=== PATIENT | male | born 1970 | race Caucasian/White ===

== ENCOUNTER 2016-12-13 04:16 | Emergency (ER) | payer MEDICAID ==
[~2016-12-13] VITALS: Ht 193 cm; Wt 95.3 kg
--- NOTE | 2016-12-13 04:16 | Emergency Room Report ---
History of Present Illness General Source: Patient, EMS Present Illness HPI Patient's 46-year-old male brought in by ambulance after increased vomiting. Patient gradual onset of symptoms. Patient reported multiple episodes of nonbilious vomit. Patient had prior history of hypertension. The patient was having some initially dark emesis. Patient prior history of GERD as well as a Manuela-Simeon tear. The patient states he's recovering alcoholic.Patient has had previous EGDs done at [facility] Allergies: Coded Allergies: LISINOPRIL (Verified Allergy, Unknown, 12/13/16) Patient History Reviewed Nursing Documentation: PMH: Agreed, PSxH: Agreed Review of Systems All Other Systems: negative except mentioned in HPI Physical Exam Sp02 EP Interpretation: reviewed, normal General Appearance: normal inspection, alert, GCS 15, mild distress Head: atraumatic ENT: normal ENT inspection, hearing grossly normal, normal voice Neck: normal inspection, full range of motion, supple, no bony tend Respiratory: normal inspection, lungs clear, normal breath sounds, no respiratory distress, no retraction, no wheezing Cardiovascular #1: no edema, tachycardia Gastrointestinal: normal inspection, normal bowel sounds, non tender, soft, no guarding, no hernia Genitourinary: no CVA tenderness Musculoskeletal: normal inspection, back normal, normal range of motion Neurologic: normal inspection, alert, oriented x3, responsive, trade sales assistant III-XII nml as tested, speech normal Psychiatric: normal inspection, judgement/insight normal, mood/affect normal Skin: normal inspection, normal color, no rash Medical Decision Making Diagnostic Impression: Primary Impression: Upper GI bleed Additional Impressions: Acute gastritis High anion gap metabolic acidosis Alcohol withdrawal syndrome ER Course Patient presented for abdominal pain. Differential diagnoses included ischemic bowel, appendicitis, perforated viscus, abdominal aortic aneurysm, inferior myocardial infarction, viral gastroenteritis Because of complexity of patient's case laboratory testing and imaging studies were ordered.The patient was noted to have elevated white blood count. Laboratory testing was also notable for a low bicarbonate with a anion gap acidosis. The patient started on IV fluids as well as IV Zofran and IV acid blockers. Patient was given IV Ativan for alcohol withdrawal. The patient was noted to have some vomiting with dark material.The patient was noted to have anion gap acidosis. Dr. Lind was contacted for O and will be transferred for further management of acidosis. Labs Test 12/13/16 04:27 12/13/16 05:15 White Blood Count 15.2 K/UL (4.8-10.8) Red Blood Count 5.00 M/UL (4.70-6.10) Hemoglobin 13.9 G/DL (14.2-18.0) Hematocrit 43.8 % (42.0-52.0) Mean Corpuscular Volume 88 FL (80-99) Mean Corpuscular Hemoglobin 27.9 PG (27.0-31.0) Mean Corpuscular Hemoglobin Concent 31.8 G/DL (32.0-36.0) Red Cell Distribution Width 18.6 % (11.6-14.8) Platelet Count 321 K/UL (150-450) Mean Platelet Volume 7.2 FL (6.5-10.1) Neutrophils (%) (Auto) 82.7 % (45.0-75.0) Lymphocytes (%) (Auto) 12.9 % (20.0-45.0) Monocytes (%) (Auto) 3.9 % (1.0-10.0) Eosinophils (%) (Auto) 0.0 % (0.0-3.0) Basophils (%) (Auto) 0.4 % (0.0-2.0) Prothrombin Time 10.4 SEC (9.30-11.50) Prothromb Time International Ratio 1.0 (0.9-1.1) Activated Partial Thromboplast Time 24 SEC (23-33) Sodium Level 140 mEQ/L (135-145) Potassium Level 3.7 mEQ/L (3.4-4.9) Chloride Level 90 mEQ/L (98-107) Carbon Dioxide Level 12 mEQ/L (20-30) Anion Gap 38 (5-15) Blood Urea Nitrogen 19 mg/dL (7-23) Creatinine 1.0 mg/dL (0.7-1.2) Estimat Glomerular Filtration Rate > 60 mL/min (>60) Glucose Level 134 mg/dL (74-106) Calcium Level 11.2 mg/dL (8.6-10.2) Total Bilirubin 0.7 mg/dL (0.0-1.2) Aspartate Amino Transf (AST/SGOT) 30 U/L (5-40) Alanine Aminotransferase (ALT/SGPT) 12 U/L (3-41) Alkaline Phosphatase 99 U/L (40-129) Troponin I < 0.30 ng/mL (<=0.30) Total Protein 8.4 g/dL (6.6-8.7) Albumin 4.6 g/dL (3.5-5.2) Globulin 3.8 g/dL Albumin/Globulin Ratio 1.2 (1.0-2.7) Lipase 9 U/L (< 60) EKG Diagnostic Results Rate: tachycardiac Rhythm: NSR ST Segments: no acute changes Rhythm Strip Diag. Results EP Interpretation: yes Rhythm: no PVC's, no ectopy, other - sinus tachycardia, 130 Status: unchanged Disposition: ER SHT-TRM HOSP Condition: Serious Steve Bah Dec 13, 2016 04:16
[2016-12-13] MEDS: Famotidine 20 MG/ 2ML VIAL IVP ONE (04:53)
[2016-12-13 04:55] LABS: BASOPHILS % (AUTO) 0.4 % (0.0-2.0); LYMPHOCYTES % (AUTO) 12.9 % (20.0-45.0); MEAN CORPUSCULAR HEMOGLOBIN 27.9 PG (27.0-31.0); MEAN CORPUSCULAR HGB CONC 31.8 G/DL (32.0-36.0); MEAN CORPUSCULAR VOLUME 88 FL (80-99); MEAN PLATELET VOLUME 7.2 FL (6.5-10.1); MONOCYTES % (AUTO) 3.9 % (1.0-10.0); NEUTROPHILS % (AUTO) 82.7 % (45.0-75.0); PLATELET COUNT 321 K/UL (150-450); RED CELL DISTRIBUTION WIDTH 18.6 % (11.6-14.8); WHITE BLOOD COUNT 15.2 K/UL (4.8-10.8)
[2016-12-13 05:01] VITALS: BP 125/91
[2016-12-13] MEDS ORDERED: METHOCARBAMOL500 MG ORAL (05:04)
[2016-12-13] MEDS ORDERED: PANTOPRAZOLE SO40 MG ORAL (05:04)
[2016-12-13] MEDS ORDERED: ACETAMINOPHEN120 MG RECTAL (05:04)
[2016-12-13] MEDS ORDERED: ALLOPURINOL300 M1 ORAL (05:04)
[2016-12-13] MEDS ORDERED: GABAPENTIN100 MG ORAL (05:04)
[2016-12-13] MEDS ORDERED: PROBENECID-COL1 EACH PO (05:04)
[2016-12-13] MEDS: LORazepam Inj 2mg/ml 1ml IV ONE ×3 (05:11→10:05)
[2016-12-13] MEDS ORDERED: FOLIC ACID1 MG ORAL (05:21)
[2016-12-13] MEDS ORDERED: IRON325 M1 PO (05:21)
[2016-12-13] MEDS ORDERED: ESCITALOPRAM OX20 MG ORAL (05:21)
[2016-12-13] MEDS ORDERED: LEXAPRO10 MG ORAL (05:21)
[2016-12-13 05:34] LABS: ALANINE AMINOTRANSFERASE 12 U/L (3-41); ALBUMIN/GLOBULIN RATIO 1.2 (1.0-2.7); ANION GAP 38 (5-15); ASPARTATE AMINO TRANSFERASE 30 U/L (5-40); CALCIUM 11.2 mg/dL (8.6-10.2); CARBON DIOXIDE 12 mEQ/L (20-30); CHLORIDE 90 mEQ/L (98-107); GLOMERULAR FILTRATION RATE > 60 mL/min (>60); HEMOLYSIS 55; LIPASE 9 U/L (< 60); POTASSIUM 3.7 mEQ/L (3.4-4.9); SODIUM 140 mEQ/L (135-145); TOTAL PROTEIN 8.4 g/dL (6.6-8.7)
[2016-12-13 05:36] LABS: PROTHROMBIN TIME 10.4 SEC (9.30-11.50); TROPONIN I < 0.30 ng/mL (<=0.30)
[2016-12-13 06:04] VITALS: BP 142/98
[2016-12-13 06:38] LABS: APPEARANCE,URINE CLEAR; KETONES,URINE 3+ (NEGATIVE); LEUKOCYTE ESTERASE ,URINE NEGATIVE (NEGATIVE); NITRITE,URINE NEGATIVE (NEGATIVE); PH,URINE 6 (4.5-8.0); PROTEIN,URINE 3+ (NEGATIVE); UROBILINOGEN,URINE NORMAL MG/DL (0.0-1.0)
[2016-12-13 06:55] LABS: BACTERIA,URINE FEW /HPF; SQUAMOUS EPITHELIAL CELL,UR OCCASIONAL /LPF (NONE/OCC); WBC,URINE 0-2 /HPF (0 - 0)
[2016-12-13 08:00] VITALS: BP 162/101
[2016-12-13] MEDS ORDERED: ATENOLOL25 MG ORAL (08:45)
[2016-12-13] MEDS: Pantoprazole Inj IVP ONE (09:06)
[2016-12-13] MEDS: Atenolol 25mg tab ORAL ONE (09:07)
[2016-12-13 10:00] VITALS: BP 162/107
[2016-12-13 10:11] VITALS: BP 162/107
--- NOTE | 2016-12-13 11:41 | Diagnostic Imaging Report ---
Indication: Chest Pain Comparison: None A single view chest radiograph was obtained. Findings: Cardiomediastinal appearance is within normal limits for age. Lung volumes are low. Pulmonary vascularity is appropriate. The diaphragmatic contour is smooth and costophrenic angles are sharp. No pleural effusions are identified. The bones are unremarkable. Impression: No acute findings
--- NOTE | 2016-12-15 19:05 | Cardiology Report ---
APPROVED REPORT EKG Measurement Heart [id number] Sinus tachycardia Left anterior fascicular block Abnormal ECG
== END 2016-12-13 10:19 | disposition short-term general hospital (02) ==
LOC: EDBD 04:16 → EMR 04:29
DX: K92.2 Gastrointestinal hemorrhage, unspecified (principal); K29.00 Acute gastritis without bleeding; E87.2 Acidosis; F10.239 Alcohol dependence with withdrawal, unspecified
CPT/HCPCS: 36415; 71010; 80053; 81003; 83690; 84484; 85025; 85610; 85730; 86850; 86900; 86901; 93005; 96374; 96375; J2405

== ENCOUNTER 2016-12-21 17:20 | Emergency (ER) | payer MEDICAID ==
[~2016-12-21] VITALS: Ht 195.6 cm; Wt 95.3 kg
[~2016-12-21 17:20] MED LIST: ACETAMINOPHEN120 MG RECTAL; ALLOPURINOL300 M1 ORAL; ATENOLOL25 MG ORAL; ESCITALOPRAM OX20 MG ORAL; FOLIC ACID1 MG ORAL; GABAPENTIN100 MG ORAL; IRON325 M1 PO; LEXAPRO10 MG ORAL; METHOCARBAMOL500 MG ORAL; PANTOPRAZOLE SO40 MG ORAL; PROBENECID-COL1 EACH PO
--- NOTE | 2016-12-21 17:43 | Emergency Room Report ---
History of Present Illness General Chief Complaint: Vomiting Present Illness HPI 46-year-old male presents emergency department complaining of nausea and vomiting due to alcohol withdrawal since this a.m. Patient states that he is an alcoholic and he is attempting to detox on his own he estimates drinking slightly less than 1 pint this a.m. he also reports history of Yasmin-Simeon tear approximately 3 weeks ago. he reports over 6 episodes of vomiting this a.m. denies blood in the vomit. Patient reports multiple episodes of gagging without vomiting coming out as well. he denies throat pain or chest pain at this time. he states she has a history of high blood pressure and did not take his blood pressure medication this a.m. because of all the vomiting. Patient denies history of alcoholic seizures during withdrawal. Patient reports aches and pains generalized upper body, sweating, and dizziness. he denies concomitant drug use. Denies CP, Palpitations, LOC, AMS, dizziness, Changes in Vision, Sensation, paresthesias, or a sudden severe headache. Allergies: Coded Allergies: LISINOPRIL (Verified Allergy, Unknown, 12/13/16) Patient History Past Medical History: see triage record Past Surgical History: none Pertinent Family History: none Social History: Reports: alcohol use Reviewed Nursing Documentation: PMH: Agreed, PSxH: Agreed Nursing Documentation-PMH Hx Hypertension: Yes Hx Gastrointestinal Problems: Yes - GERD Review of Systems All Other Systems: negative except mentioned in HPI Physical Exam Vital Signs Date Time Temp Pulse Resp B/P Pulse Ox O2 Delivery O2 Flow Rate FiO2 12/21/16 17:35 98.1 99 21 140/94 98 Room Air Sp02 EP Interpretation: reviewed, normal General Appearance: alert, GCS 15, non-toxic, mild distress Head: normocephalic, atraumatic Eyes: bilateral eye PERRL, bilateral eye normal inspection ENT: hearing grossly normal, normal pharynx, no angioedema, normal voice Neck: full range of motion, supple/symm/no masses Respiratory: chest non-tender, lungs clear, normal breath sounds, speaking full sentences Cardiovascular #1: regular rate, rhythm, no edema Gastrointestinal: normal bowel sounds - hyperactive abdominal sounds in all 4 quadrants, non tender, soft, no guarding, no rebound Rectal: deferred Musculoskeletal: back normal, gait/station normal, normal range of motion, non- tender Neurologic: alert, oriented x3, responsive, motor strength/tone normal, sensory intact, speech normal Psychiatric: judgement/insight normal, memory normal, mood/affect normal, no suicidal/homicidal ideation, anxious Skin: normal color, no rash, warm/dry Lymphatic: no adenopathy Medical Decision Making PA Attestation Dr. Bah is my supervising Physician whom patient management has been discussed with. Diagnostic Impression: Primary Impression: Alcohol withdrawal Qualified Codes: F10.230 - Alcohol dependence with withdrawal, uncomplicated Additional Impression: Gastritis due to alcohol without hemorrhage Qualified Codes: K29.20 - Alcoholic gastritis without bleeding ER Course 46-year-old male presents emergency department complaining of nausea and vomiting due to alcohol withdrawal since this a.m. Patient states that he is an alcoholic and he is attempting to detox on his own he estimates drinking slightly less than 1 pint this a.m. he also reports history of Yasmin-Simeon tear approximately 3 weeks ago. he reports over 6 episodes of vomiting this a.m. denies blood in the vomit. Patient reports multiple episodes of gagging without vomiting coming out as well. he denies throat pain or chest pain at this time. he states she has a history of high blood pressure and did not take his blood pressure medication this a.m. because of all the vomiting. Patient denies history of alcoholic seizures during withdrawal. Patient reports aches and pains generalized upper body, sweating, and dizziness. he denies concomitant drug use. Pt. is currently intoxicated with alcohol, pt. is in Mild distress with nausea and intermittent vomiting, pt. is alert, no obvious signs of trauma, able to ambulate on his own. -pt has Hx of HTN and states he did not take his medication this morning. -hx of yasmin-simeon tear, denies blood in the vomit. Ddx considered but are not limited to ETOH, Trauma, Syncope, dementia, OD, withdraw Vital signs: , pt. is afebrile, BP is elevated. H&PE are most consistent with ETOH abuse, and hx of withdraw. ORDERS: -CBC: WNL/unrmarkable no evidence of acute blood loss. -CMP: unremarkable -PT/PTT: WNL -- Review of this pt's medical records shows he is blood type A positive. ED INTERVENTIONS: -4mg IV zofran - 20 mg Pepcid IV - 10mg Reglan IV -1mg IV Ativan -1000cc NS Bolus -100mg Thiamine PO Observance while he detoxifies, and management of his symptoms pharmacologically. Pt. was allowed to sleep/rest. - pt is able to tolerate oral fluids, VS are stable - Pt is provided with drug and alcohol abuse information/resources. DISCHARGE: At this time pt. is stable for d/c to home. Will provide printed patient care instructions, and any necessary prescriptions. Care plan and follow up instructions have been discussed with the patient prior to discharge. Labs Test 12/21/16 18:20 White Blood Count 7.4 K/UL (4.8-10.8) Red Blood Count 4.80 M/UL (4.70-6.10) Hemoglobin 13.4 G/DL (14.2-18.0) Hematocrit 43.9 % (42.0-52.0) Mean Corpuscular Volume 92 FL (80-99) Mean Corpuscular Hemoglobin 28.0 PG (27.0-31.0) Mean Corpuscular Hemoglobin Concent 30.6 G/DL (32.0-36.0) Red Cell Distribution Width 18.1 % (11.6-14.8) Platelet Count 260 K/UL (150-450) Mean Platelet Volume 6.1 FL (6.5-10.1) Neutrophils (%) (Auto) 68.1 % (45.0-75.0) Lymphocytes (%) (Auto) 24.9 % (20.0-45.0) Monocytes (%) (Auto) 5.6 % (1.0-10.0) Eosinophils (%) (Auto) 0.3 % (0.0-3.0) Basophils (%) (Auto) 1.1 % (0.0-2.0) Prothrombin Time 10.3 SEC (9.30-11.50) Prothromb Time International Ratio 1.0 (0.9-1.1) Activated Partial Thromboplast Time 24 SEC (23-33) Sodium Level 148 mEQ/L (135-145) Potassium Level 4.1 mEQ/L (3.4-4.9) Chloride Level 98 mEQ/L (98-107) Carbon Dioxide Level 17 mEQ/L (20-30) Anion Gap 33 (5-15) Blood Urea Nitrogen 13 mg/dL (7-23) Creatinine 0.9 mg/dL (0.7-1.2) Estimat Glomerular Filtration Rate > 60 mL/min (>60) Glucose Level 102 mg/dL (74-106) Calcium Level 9.4 mg/dL (8.6-10.2) Total Bilirubin 0.4 mg/dL (0.0-1.2) Aspartate Amino Transf (AST/SGOT) 28 U/L (5-40) Alanine Aminotransferase (ALT/SGPT) 13 U/L (3-41) Alkaline Phosphatase 103 U/L (40-129) Total Protein 8.4 g/dL (6.6-8.7) Albumin 4.4 g/dL (3.5-5.2) Globulin 4.0 g/dL Albumin/Globulin Ratio 1.1 (1.0-2.7) Last Vital Signs Date Time Temp Pulse Resp B/P Pulse Ox O2 Delivery O2 Flow Rate FiO2 12/21/16 17:35 98.1 99 21 140/94 98 Room Air Disposition: HOME, SELF-CARE Condition: Stable Scripts Ranitidine Hcl* (ZANTAC*) 150 Mg Tablet 150 MG ORAL TWICE A DAY for 30 Days, #60 TAB Prov: Luz Marina Herrera 12/21/16 Ondansetron Odt* (ZOFRAN ODT*) 4 Mg Tab.rapdis 4 MG ORAL Q6H Y for Nausea & Vomiting, #20 TAB Prov: Luz Marina Herrera 12/21/16 Patient Instructions: Alcohol Withdrawal, [id number] Additional Instructions: Take medications as directed. Follow up with PCP in 48 hours days Return sooner to ED if new symptoms occur, or current symptoms become worse. - Please note that this Emergency Department Report was dictated using [id number] drop operator technology software, occasionally this can lead to erroneous entry secondary to interpretation by the dictation equipment. Luz Marina Herrera Dec 21, 2016 17:43
[2016-12-21] MEDS ORDERED: Famotidine 20 MG/ 2ML VIAL IVP ONE (18:00)
[2016-12-21 18:38] LABS: BASOPHILS % (AUTO) 1.1 % (0.0-2.0); EOSINOPHILS % (AUTO) 0.3 % (0.0-3.0); LYMPHOCYTES % (AUTO) 24.9 % (20.0-45.0); MEAN CORPUSCULAR HGB CONC 30.6 G/DL (32.0-36.0); MEAN CORPUSCULAR VOLUME 92 FL (80-99); MEAN PLATELET VOLUME 6.1 FL (6.5-10.1); MONOCYTES % (AUTO) 5.6 % (1.0-10.0); NEUTROPHILS % (AUTO) 68.1 % (45.0-75.0); PLATELET COUNT 260 K/UL (150-450); RED CELL DISTRIBUTION WIDTH 18.1 % (11.6-14.8); WHITE BLOOD COUNT 7.4 K/UL (4.8-10.8)
[2016-12-21] MEDS ORDERED: LORazepam Inj 2mg/ml 1ml IM ONE (18:45)
[2016-12-21 18:46] LABS: PROTHROMBIN TIME 10.3 SEC (9.30-11.50)
[2016-12-21 18:56] LABS: ALANINE AMINOTRANSFERASE 13 U/L (3-41); ALBUMIN/GLOBULIN RATIO 1.1 (1.0-2.7); ANION GAP 33 (5-15); ASPARTATE AMINO TRANSFERASE 28 U/L (5-40); CALCIUM 9.4 mg/dL (8.6-10.2); CARBON DIOXIDE 17 mEQ/L (20-30); CHLORIDE 98 mEQ/L (98-107); CREATININE 0.9 mg/dL (0.7-1.2); GLOMERULAR FILTRATION RATE > 60 mL/min (>60); HEMOLYSIS 0; POTASSIUM 4.1 mEQ/L (3.4-4.9); SODIUM 148 mEQ/L (135-145); TOTAL PROTEIN 8.4 g/dL (6.6-8.7)
[2016-12-21] MEDS ORDERED: Metoclopramide 10mg/2ml Inj IVP ONE (19:00)
[2016-12-21] MEDS ORDERED: LORazepam Inj 2mg/ml 1ml IV ONE (19:00)
[2016-12-21] MEDS ORDERED: Thiamine 100mg tab ORAL ONE (19:30)
[2016-12-21] MEDS ORDERED: ZOFRAN ODT4 MG ORAL (20:26)
[2016-12-21] MEDS ORDERED: ZANTAC150 MG ORAL (20:26)
[2016-12-21 20:46] VITALS: BP 177/87
[2016-12-21 20:47] VITALS: BP 177/87
== END 2016-12-21 20:50 | disposition home or self-care (01) ==
LOC: EMR 18:05
DX: F10.239 Alcohol dependence with withdrawal, unspecified (principal); K29.20 Alcoholic gastritis without bleeding; I10 Essential (primary) hypertension; K21.9 Gastro-esophageal reflux disease without esophagitis; Z88.8 Allergy status to other drugs, medicaments and biological substances
CPT/HCPCS: 36415; 80053; 85025; 85610; 85730; 96360; 96374; 96375; 99284; J2405; J2765; S0028

== ENCOUNTER 2016-12-23 09:05 | Inpatient (IN) | payer MEDICAID ==
[2016-12-23] VITALS (8 sets, daily range): BP systolic 96–140; BP diastolic 70–104
[~2016-12-23] VITALS: Ht 190.5 cm; Wt 86.2 kg
[~2016-12-23 09:05] MED LIST changes: +ZANTAC150 MG ORAL; +ZOFRAN ODT4 MG ORAL
[2016-12-23] MEDS ORDERED: Pantoprazole Inj IVP ONE (09:15)
[2016-12-23] MEDS ORDERED: Pantoprazole 80 MG in NS 250 ML IV ONE (09:15)
[2016-12-23] MEDS ORDERED: Famotidine 20 MG/ 2ML VIAL IVP ONE (09:15)
[2016-12-23] MEDS ORDERED: cefTRIAXone 1 GM in NS 55 ML IVPB ONE (09:15)
[2016-12-23] MEDS ORDERED: SandoSTATIN 50mcg Inj IVP ONE (09:15)
[2016-12-23] MEDS: Octreotide Acetate 500 MCG in Sodium Chloride 499 ML IV SCH ×2 (09:44→19:15)
[2016-12-23] MEDS ORDERED: LORazepam Inj 2mg/ml 1ml IV ONE (09:45)
--- NOTE | 2016-12-23 09:55 | Emergency Room Report ---
History of Present Illness General Chief Complaint: Vomiting Source: Patient, EMS Present Illness HPI 46YOM BIBEMS for hematemesis and "alcohol withdrawal." Patient states he has been trying to quit drinking for "4 hours." Drank vodka this morning. Unable to take oral nexium given by doctor for he says is "gastritis" from ETOH. C/o mild epigastric pain. Denies blood in stool, melena, urinary complaints, chest pain, SOB. Allergies: Coded Allergies: LISINOPRIL (Verified Allergy, Unknown, 12/13/16) Patient History Past Medical History: other - ETOH gastritis Past Surgical History: none Pertinent Family History: none Social History: Reports: alcohol use Nursing Documentation-PM Past Medical History: No History, Except For Hx Hypertension: Yes Hx Gastrointestinal Problems: Yes - GERD History Of Psychiatric Problem: Yes - depression, alcohol abuse Review of Systems All Other Systems: negative except mentioned in HPI Physical Exam Vital Signs Date Time Temp Pulse Resp B/P Pulse Ox O2 Delivery O2 Flow Rate FiO2 12/23/16 08:55 98.8 143 24 99/57 100 Room Air Sp02 EP Interpretation: reviewed, abnormal General Appearance: normal inspection, no apparent distress, alert, GCS 15, non -toxic, moderate distress, other - +AOB Head: normocephalic, atraumatic Eyes: bilateral eye EOMI, bilateral eye PERRL ENT: normal ENT inspection, hearing grossly normal, normal voice Neck: normal inspection, full range of motion, supple, no bony tend Respiratory: normal inspection, lungs clear, normal breath sounds, no respiratory distress, no retraction, no wheezing Cardiovascular #1: regular rate, rhythm, no edema, tachycardia Gastrointestinal: normal inspection, normal bowel sounds, soft, non-distended, no guarding, no hernia, other - + epigastric ttp Genitourinary: no CVA tenderness Musculoskeletal: normal inspection, back normal, normal range of motion, May' s Sign negative Neurologic: normal inspection, alert, oriented x3, responsive, glaze grinder III-XII nml as tested, motor strength/tone normal, speech normal, other - no tremors or fasciculations Psychiatric: normal inspection, judgement/insight normal, mood/affect normal Procedures Critical Care Time Critical Care Time CC time 45 minutes Care for a 46 YOM with ?known gastritis/ulcer from ETOH with alleged hematemesis VS notable for tachycardia. Normotensive. Afebrile. DDx includes Perforation, gastric ulcer, PUD, ETOH gastritis Patient is oriented, no active vomiting/coughing blood. Comprehensive physical exam completed, atraumatic. Labs include CBC and chem panel, EKG 12 lead and constant cardiac rhythm strip monitoring, IV established wide bore, Coags, T&S, IV protononix, octreotide Airway adequately maintained by patient upon arrival. EKG reveals NSR without QRS abnormalities, sinus tach Physician spent 45 minutes of direct critical care time monitoring patient's respiratory, cardiac and neurological status, reassessment, review of imaging, labs and discussion with attending hospitalist, possible GI consult Does not include procedures Medical Decision Making Diagnostic Impression: Primary Impression: Hematemesis Qualified Codes: K92.0 - Hematemesis; R11.0 - Nausea Additional Impression: Alcohol abuse ER Course Labs: No leuks. H&H stable. No other major metabolic abnormalities. No additional vomiting or hematemesis here Initial tachycardia 140 improved to 116 after IVF hydration, IV ativan for ETOH withdrawal Received IV protonix, ocrtreotide and ceftriaxone for presumed cirrhosis Patient still unstable for transfer given tachycardia - history of yasmin hyde tear so concern for massive hematemesis to occur en route for transfer to [facility] Endorsed to Dr Matos for tele admit at 1123am EKG Diagnostic Results Rate: tachycardiac Rhythm: NSR ST Segments: no acute changes Rhythm Strip Diag. Results EP Interpretation: yes Rate: 115 Rhythm: NSR, no PVC's, no ectopy Chest X-Ray Diagnostic Results EP Interpretation: Yes Findings: no consolidation, no effusion, no pneumothorax, no acute cardiopulmonary disease Number of Views: 1 Last Vital Signs Date Time Temp Pulse Resp B/P Pulse Ox O2 Delivery O2 Flow Rate FiO2 12/23/16 08:55 98.8 143 24 99/57 100 Room Air Status: improved Disposition: ADMITTED INPATIENT Condition: Critical Referrals: [facility],REFERRING (PCP) DUNIA AGUDELO M.D. Dec 23, 2016 09:55
[2016-12-23 10:24] LABS: BASOPHILS % (AUTO) 0.7 % (0.0-2.0); LYMPHOCYTES % (AUTO) 25.7 % (20.0-45.0); MEAN CORPUSCULAR HEMOGLOBIN 27.4 PG (27.0-31.0); MEAN CORPUSCULAR HGB CONC 30.4 G/DL (32.0-36.0); MEAN CORPUSCULAR VOLUME 90 FL (80-99); MEAN PLATELET VOLUME 6.2 FL (6.5-10.1); NEUTROPHILS % (AUTO) 69.7 % (45.0-75.0); PLATELET COUNT 272 K/UL (150-450); RED BLOOD COUNT 4.85 M/UL (4.70-6.10); RED CELL DISTRIBUTION WIDTH 17.8 % (11.6-14.8); WHITE BLOOD COUNT 8.9 K/UL (4.8-10.8)
[2016-12-23 10:31] LABS: INR 1.1 (0.9-1.1); PROTHROMBIN TIME 11.2 SEC (9.30-11.50)
[2016-12-23 10:33] LABS: ALANINE AMINOTRANSFERASE 14 U/L (3-41); ALBUMIN/GLOBULIN RATIO 1.1 (1.0-2.7); ANION GAP 33 (5-15); ASPARTATE AMINO TRANSFERASE 42 U/L (5-40); CALCIUM 8.4 mg/dL (8.6-10.2); CARBON DIOXIDE 21 mEQ/L (20-30); CHLORIDE 88 mEQ/L (98-107); GLOMERULAR FILTRATION RATE > 60 mL/min (>60); HEMOLYSIS 115; LIPASE 17 U/L (< 60); SODIUM 142 mEQ/L (135-145); TOTAL PROTEIN 7.6 g/dL (6.6-8.7); TROPONIN I < 0.30 ng/mL (<=0.30)
[2016-12-23 10:36] LABS: POTASSIUM 4.4 mEQ/L (3.4-4.9)
[2016-12-23 11:16] LABS: APPEARANCE,URINE CLEAR; KETONES,URINE 2+ (NEGATIVE); LEUKOCYTE ESTERASE ,URINE NEGATIVE (NEGATIVE); NITRITE,URINE NEGATIVE (NEGATIVE); PH,URINE 6 (4.5-8.0); PROTEIN,URINE 2+ (NEGATIVE); UROBILINOGEN,URINE NORMAL MG/DL (0.0-1.0)
--- NOTE | 2016-12-23 11:16 | Diagnostic Imaging Report ---
Clinical history: Chest pain Technique: Portable AP chest radiograph was obtained. Comparison: 12/13/16. Findings: There is no significant interval change in the interval, allowing for differences in technique and positioning. Impression: Low lung volumes. Borderline cardiomegaly with probable mild interstitial edema or vascular crowding. Bilateral thoracolumbar Simons rods and left clavicular orthopedic hardware.
[2016-12-23 11:33] LABS: BACTERIA,URINE OCCASIONAL /HPF; HYALINE CASTS, URINE 0-2 /LPF; MUCUS,URINE FEW /LPF (NONE/OCC); RBC,URINE 0-2 /HPF (0 - 0); SQUAMOUS EPITHELIAL CELL,UR OCCASIONAL /LPF (NONE/OCC); WBC,URINE 0 /HPF (0 - 0)
[2016-12-23] MEDS ORDERED: Metoclopramide 10mg/2ml Inj IVP ONE (12:45)
[2016-12-23] MEDS ORDERED: Diazepam 10mg/2ml Inj IV ONE (12:45)
[2016-12-23] MEDS ORDERED: LR 1000ml 1,000 ML IV STA (12:54)
[2016-12-23] MEDS ORDERED: Morphine Sulfate 4mg/ml Inj IVP ONE (13:00)
[2016-12-23] MEDS ORDERED: LORazepam Inj 2mg/ml 1ml IV PRN (14:00)
[2016-12-23] MEDS ORDERED: Morphine Sulfate 2mg/ml Inj IVP PRN (14:00)
[2016-12-23] MEDS ORDERED: Mylanta II UD 30ml ORAL PRN (14:00)
[2016-12-23] MEDS ORDERED: Miralax 17gm pkt ORAL PRN (14:00)
--- NOTE | 2016-12-23 15:06 | History and Physical ---
History of Present Illness General Date patient seen: Dec 23, 2016 Time patient seen: 14:45 Reason for Hospitalization: Vomiting Present Illness HPI 46 y/old male presented for hematemesis and "alcohol withdrawal." Patient stated he has been trying to quit drinking for "4 hours." Drank vodka this morning. Coffee ground emesis in ED, denied blood in stool C/o mild epigastric pain. denies urinary complaints, chest pain, SOB. laboratory workup unremarkable, HH stable, no leucocytosis troponin negative ECG with ST, no ischemic changes patient reported previous episode of hematemesis anxious, patient being admitted to [facility] for further management Allergies: Coded Allergies: LISINOPRIL (Verified Allergy, Unknown, 12/13/16) Medication History Scheduled Allopurinol* (Allopurinol*), 300 MG ORAL DAILY, (Reported) Atenolol* (Tenormin*), Unknown Dose ORAL DAILY, (Reported) Escitalopram Oxalate (Escitalopram Oxalate*), 20 MG ORAL DAILY, (Reported) Escitalopram Oxalate* (Lexapro*), 10 MG ORAL DAILY, (Reported) Folic Acid* (Folic Acid*), 1 MG ORAL DAILY, (Reported) Gabapentin* (Gabapentin*), 100 MG ORAL THREE TIMES A DAY, (Reported) Pantoprazole* (Pantoprazole*), 40 MG ORAL DAILY, (Reported) Ranitidine Hcl* (Zantac*), 150 MG ORAL TWICE A DAY Scheduled PRN Acetaminophen* (Tylenol*), 120 MG RECTAL Q4H PRN for Mild Pain/Temp > 100.5, ( Reported) Methocarbamol* (Methocarbamol*), 500 MG ORAL QID PRN for For Pain, (Reported) Ondansetron Odt* (Zofran Odt*), 4 MG ORAL Q6H PRN for Nausea & Vomiting Miscellaneous Medications Colchicine/Probenecid (Probenecid-Colchicine Tabs), 1 EACH PO, (Reported) Ferrous Sulfate (Iron), 325 MG PO, (Reported) Patient History Healthcare decision maker Resuscitation status Advanced Directive on File Past Medical/Surgical History Past Medical/Surgical History: (1) ETOH abuse (2) Gout (3) HTN (hypertension) Review of Systems Constitutional: Reports: weakness ENT: Reports: no symptoms Respiratory: Reports: no symptoms Cardiovascular: Reports: other - HTN Gastrointestinal: Reports: see HPI Musculoskeletal: Reports: joint pain, other - gout , hx of spinal fusion Skin: Reports: no symptoms Psychiatric: Reports: no symptoms Neurological: Reports: no symptoms Endocrine: Reports: no symptoms Hematologic/Lymphatic: Reports: no symptoms Physical Exam General Appearance: WD/WN, alert - responsive Lines, tubes and drains: peripheral HEENT: normocephalic, atraumatic, anicteric Neck: non-tender, normal alignment Respiratory/Chest: chest wall non-tender, lungs clear, no respiratory distress , no accessory muscle use Cardiovascular/Chest: regular rhythm, tachycardia Abdomen: normal bowel sounds, soft - mild distention, TTP epigastric area Extremities: normal range of motion, no calf tenderness, other - +2 edema BLE Skin Exam: normal pigmentation, warm/dry, other - BLE ruddish color Neurologic: alert, responsive Musculoskeletal: normal muscle bulk Last 24 Hour Vital Signs Date Time Temp Pulse Resp B/P Pulse Ox O2 Delivery O2 Flow Rate FiO2 12/23/16 13:48 98.8 12/23/16 13:47 117 20 112/79 95 Nasal Cannula 2.0 12/23/16 12:03 98.8 122 20 96/70 97 Nasal Cannula 2.0 12/23/16 11:03 98.8 126 22 133/93 98 Nasal Cannula 2.0 12/23/16 08:55 98.8 143 24 99/57 100 Room Air Laboratory Tests Test 12/23/16 09:53 12/23/16 11:00 White Blood Count 8.9 K/UL (4.8-10.8) Red Blood Count 4.85 M/UL (4.70-6.10) Hemoglobin 13.3 G/DL (14.2-18.0) L Hematocrit 43.6 % (42.0-52.0) Mean Corpuscular Volume 90 FL (80-99) Mean Corpuscular Hemoglobin 27.4 PG (27.0-31.0) Mean Corpuscular Hemoglobin Concent 30.4 G/DL (32.0-36.0) L Red Cell Distribution Width 17.8 % (11.6-14.8) H Platelet Count 272 K/UL (150-450) Mean Platelet Volume 6.2 FL (6.5-10.1) L Neutrophils (%) (Auto) 69.7 % (45.0-75.0) Lymphocytes (%) (Auto) 25.7 % (20.0-45.0) Monocytes (%) (Auto) 4.0 % (1.0-10.0) Eosinophils (%) (Auto) 0.0 % (0.0-3.0) Basophils (%) (Auto) 0.7 % (0.0-2.0) Prothrombin Time 11.2 SEC (9.30-11.50) Prothromb Time International Ratio 1.1 (0.9-1.1) Activated Partial Thromboplast Time 25 SEC (23-33) Sodium Level 142 mEQ/L (135-145) Potassium Level 4.4 mEQ/L (3.4-4.9) Chloride Level 88 mEQ/L (98-107) L Carbon Dioxide Level 21 mEQ/L (20-30) Anion Gap 33 (5-15) H Blood Urea Nitrogen 23 mg/dL (7-23) Creatinine 1.0 mg/dL (0.7-1.2) Estimat Glomerular Filtration Rate > 60 mL/min (>60) Glucose Level 175 mg/dL (74-106) H Calcium Level 8.4 mg/dL (8.6-10.2) L Total Bilirubin 0.3 mg/dL (0.0-1.2) Aspartate Amino Transf (AST/SGOT) 42 U/L (5-40) H Alanine Aminotransferase (ALT/SGPT) 14 U/L (3-41) Alkaline Phosphatase 86 U/L (40-129) Troponin I < 0.30 ng/mL (<=0.30) Total Protein 7.6 g/dL (6.6-8.7) Albumin 4.1 g/dL (3.5-5.2) Globulin 3.5 g/dL Albumin/Globulin Ratio 1.1 (1.0-2.7) Lipase 17 U/L (< 60) Urine Color Pale yellow Urine Appearance Clear Urine pH 6 (4.5-8.0) Urine Specific [place] 1.015 (1.005-1.035) Urine Protein 2+ (NEGATIVE) H Urine Glucose (UA) Negative (NEGATIVE) Urine Ketones 2+ (NEGATIVE) H Urine Occult Blood 1+ (NEGATIVE) H Urine Nitrite Negative (NEGATIVE) Urine Bilirubin Negative (NEGATIVE) Urine Urobilinogen Normal MG/DL (0.0-1.0) Urine Leukocyte Esterase Negative (NEGATIVE) Urine RBC 0-2 /HPF (0 - 0) H Urine WBC 0 /HPF (0 - 0) Urine Squamous Epithelial Cells Occasional /LPF Urine Bacteria Occasional /HPF (NONE) Urine Hyaline Casts 0-2 /LPF (NONE) H Urine Mucus Few /LPF (NONE/OCC) H Height (Feet): 6 Height (Inches): 3.00 Weight (Pounds): 190 Medications Current Medications Medications (Trade) Dose Ordered Sig/Kulwant Route PRN Reason Start Time Stop Time Status Last Admin Dose Admin Acetaminophen (Tylenol) 650 mg Q4H PRN ORAL fever 12/23/16 14:00 01/22/17 13:59 Al Hydroxide/Mg Hydroxide (Mylanta II) 30 ml Q6H PRN ORAL dyspepsia 12/23/16 14:00 01/22/17 13:59 Chlordiazepoxide (Librium) 25 mg Q6H PRN ORAL Agitation 12/23/16 14:00 12/30/16 13:59 Dextrose STAT PRN IV Hypoglycemia 12/23/16 14:00 01/22/17 13:59 Folic Acid/ Magnesium Sulfate/ Multivitamins/ Sodium Chloride (Folvite/ Magnesium Sulfate/ M.v.i.-12/NS w/ KCl 20mEq) 1,014.2 ml @ 125 mls/ hr Q24H IV 12/23/16 16:00 01/22/17 15:59 Lorazepam (Ativan 2mg/ml 1ml) 2 mg Q1H PRN IV seizures 12/23/16 14:00 12/30/16 13:59 Morphine Sulfate (Morphine Sulfate) 1 mg Q4H PRN IVP PAIN 4-10 12/23/16 14:00 12/30/16 13:59 Octreotide Acetate/Sodium Chloride (SandoSTATIN/NS) 500 ml @ 50 mls/hr Q10H IV 12/23/16 09:15 01/22/17 09:14 12/23/16 09:44 Ondansetron HCl (Zofran) 4 mg Q6H PRN IVP Nausea & Vomiting 12/23/16 14:00 01/22/17 13:59 Pantoprazole 80 mg/Sodium Chloride 250 ml @ 25 mls/hr Q10H ONCE IV 12/23/16 09:15 4/2/17 19:14 12/23/16 09:55 Polyethylene Glycol (Miralax) 17 gm HSPRN PRN ORAL Constipation 12/23/16 14:00 01/22/17 13:59 Zolpidem Tartrate (Ambien) 5 mg HSPRN PRN ORAL Insomnia 12/23/16 14:00 01/22/17 13:59 Assessment/Plan Assessment/Plan ASSESSMENT hematemesis alcohol intoxication alcoholic liver disease HTN gout PLAN OF CARE tele NPO IVF /banana bag Librium for withdrawal Ativan prn for possible seizures GI consult , started on Octreotide gtt s/p initial PPI gtt and Octreotide in ED HH stable , monitor, stable for now PPI a/emetic prn abdominal US case discussed and evaluated by supervising physician Loreto Carney NP ([place]) Dec 23, 2016 15:06
[2016-12-23] MEDS ORDERED: THIAMINE HCL IVPB SCH (16:00)
[2016-12-23] MEDS ORDERED: D5W IVPB SCH (16:00)
[2016-12-23] MEDS ORDERED: Thiamine 100 MG ivpb IVPB SCH ×2 (16:00)
[2016-12-23] MEDS: Folic Acid 1 MG, Magnesium Sulfate 2,000 MG, Multivitamin - 12 Injection 10 ML in NS w/... IV SCH (16:46)
[2016-12-23] MEDS: Thiamine HCl 100 MG in D5W 110 ML IV SCH (16:47)
[2016-12-23] MEDS: Metoclopramide 10mg/2ml Inj IVP PRN (19:50)
[2016-12-23] MEDS ORDERED: Octreotide Acetate 500 MCG in Sodium Chloride 499 ML IV SCH ×4 (23:45)
[2016-12-24] VITALS (12 sets, daily range): BP systolic 141–157; BP diastolic 89–107
[2016-12-24] MEDS: Zolpidem 5mg tab ORAL PRN ×2 (00:37→23:54)
[2016-12-24] MEDS: Pantoprazole Inj IVP SCH (08:40)
[2016-12-24] MEDS: Metoclopramide 10mg/2ml Inj IVP PRN ×2 (10:16→17:15)
[2016-12-24] MEDS: chlordiazePOXIDE 25mg Cap ORAL PRN (10:21)
[2016-12-24 10:55] LABS: BASOPHILS % (AUTO) 0.4 % (0.0-2.0); EOSINOPHILS % (AUTO) 0.2 % (0.0-3.0); LYMPHOCYTES % (AUTO) 18.6 % (20.0-45.0); MEAN CORPUSCULAR HEMOGLOBIN 27.4 PG (27.0-31.0); MEAN CORPUSCULAR HGB CONC 30.6 G/DL (32.0-36.0); MEAN CORPUSCULAR VOLUME 89 FL (80-99); MEAN PLATELET VOLUME 6.9 FL (6.5-10.1); MONOCYTES % (AUTO) 7.4 % (1.0-10.0); NEUTROPHILS % (AUTO) 73.5 % (45.0-75.0); PLATELET COUNT 121 K/UL (150-450); RED BLOOD COUNT 3.49 M/UL (4.70-6.10); RED CELL DISTRIBUTION WIDTH 17.7 % (11.6-14.8); WHITE BLOOD COUNT 7.2 K/UL (4.8-10.8)
[2016-12-24 11:17] LABS: ALANINE AMINOTRANSFERASE 10 U/L (3-41); ALBUMIN/GLOBULIN RATIO 1.5 (1.0-2.7); ANION GAP 17 (5-15); ASPARTATE AMINO TRANSFERASE 21 U/L (5-40); CALCIUM 8.5 mg/dL (8.6-10.2); CARBON DIOXIDE 30 mEQ/L (20-30); CHLORIDE 88 mEQ/L (98-107); CREATININE 0.8 mg/dL (0.7-1.2); GLOMERULAR FILTRATION RATE > 60 mL/min (>60); HEMOLYSIS 2; POTASSIUM 3.7 mEQ/L (3.4-4.9); SODIUM 135 mEQ/L (135-145); TOTAL PROTEIN 6.2 g/dL (6.6-8.7)
[2016-12-24 11:31] LABS: BILIRUBIN,DIRECT 0.3 mg/dL (0.1-0.3)
--- NOTE | 2016-12-24 12:24 | Pulmonology Progress Note ---
Assessment/Plan Problems: (1) ETOH abuse (2) Hematemesis (3) Alcohol abuse (4) Alcohol withdrawal Assessment/Plan Heart rate better f/u EGD results chech H/H, pt/ptt banana bag Librium prn Subjective ROS Limited/Unobtainable: No Interval Events: for EGD today Allergies: Coded Allergies: LISINOPRIL (Verified Allergy, Unknown, 12/13/16) Objective Last 24 Hour Vital Signs Date Time Temp Pulse Resp B/P Pulse Ox O2 Delivery O2 Flow Rate FiO2 12/24/16 11:34 98.1 101 20 157/98 94 Nasal Cannula 2.0 12/24/16 08:26 98.4 106 18 149/98 95 Nasal Cannula 2.0 12/24/16 08:00 107 12/24/16 04:00 98.2 114 20 146/94 98 Room Air 12/24/16 04:00 103 12/24/16 00:00 127 12/24/16 00:00 98.9 122 20 150/95 97 Room Air 125 12/23/16 20:28 96.1 125 20 140/104 97 Room Air 125 12/23/16 17:23 117 12/23/16 17:13 96.3 122 20 134/91 98 Nasal Cannula 2.0 12/23/16 16:20 96.3 122 20 134/91 98 Nasal Cannula 2.0 12/23/16 16:00 96.3 122 20 134/91 98 Nasal Cannula 2.0 12/23/16 15:28 98.8 116 20 132/92 95 Nasal Cannula 2.0 12/23/16 15:21 116 20 132/92 95 Nasal Cannula 2.0 12/23/16 13:48 98.8 12/23/16 13:47 117 20 112/79 95 Nasal Cannula 2.0 Intake and Output 12/23/16 12/24/16 19:00 07:00 Intake Total 600 ml 1004.2 ml Output Total 300 ml 1000 ml Balance 300 ml 4.2 ml Intake Oral 240 ml IV Total 600 ml 764.2 ml Output Urine Total 700 ml Emesis 300 ml 300 ml # Voids 1 2 # Bowel Movements 2 General Appearance: WD/WN HEENT: normocephalic Respiratory/Chest: chest wall non-tender, lungs clear Cardiovascular: normal peripheral pulses, normal rate Abdomen: normal bowel sounds, no organomegaly Extremities: no cyanosis, no clubbing Neurologic/Psychiatric: food service assistant II-XII grossly normal, no motor/sensory deficits Lymphatic: no neck adenopathy Musculoskeletal: normal muscle bulk, no effusion Laboratory Tests 12/24/16 07:15: Sodium Level 135, Potassium Level 3.7, Chloride Level 88L, Carbon Dioxide Level 30, Anion Gap 17H, Blood Urea Nitrogen 11, Creatinine 0.8, Estimat Glomerular Filtration Rate > 60, Glucose Level 130H, Calcium Level 8.5L, Total Bilirubin 1.3H, Direct Bilirubin 0.3, Aspartate Amino Transf (AST/SGOT) 21, Alanine Aminotransferase (ALT/SGPT) 10, Alkaline Phosphatase 77, Total Protein 6.2L, Albumin 3.8, Globulin 2.4, Albumin/Globulin Ratio 1.5 12/24/16 10:10: White Blood Count 7.2, Red Blood Count 3.49L, Hemoglobin 9.6L, Hematocrit 31.2L , Mean Corpuscular Volume 89, Mean Corpuscular Hemoglobin 27.4, Mean Corpuscular Hemoglobin Concent 30.6L, Red Cell Distribution Width 17.7H, Platelet Count 121#L, Mean Platelet Volume 6.9, Neutrophils (%) (Auto) 73.5, Lymphocytes (%) (Auto) 18.6L, Monocytes (%) (Auto) 7.4, Eosinophils (%) (Auto) 0.2, Basophils (%) (Auto) 0.4 Current Medications Medications (Trade) Dose Ordered Sig/Kulwant Route PRN Reason Start Time Stop Time Status Last Admin Dose Admin Acetaminophen (Tylenol) 650 mg Q4H PRN ORAL fever 12/23/16 14:00 01/22/17 13:59 Al Hydroxide/Mg Hydroxide (Mylanta II) 30 ml Q6H PRN ORAL dyspepsia 12/23/16 14:00 01/22/17 13:59 Chlordiazepoxide 25 mg 25 mg Q6H PRN ORAL Agitation 12/23/16 14:00 12/30/16 13:59 12/24/16 10:21 Dextrose STAT PRN IV Hypoglycemia 12/23/16 14:00 01/22/17 13:59 Folic Acid/ Magnesium Sulfate/ Multivitamins/ Sodium Chloride (Folvite/ Magnesium Sulfate/ M.v.i.-12/NS w/ KCl 20mEq) 1,014.2 ml @ 125 mls/ hr Q24H IV 12/23/16 16:00 01/22/17 15:59 12/23/16 16:46 Lorazepam (Ativan 2mg/ml 1ml) 2 mg Q1H PRN IV seizures 12/23/16 14:00 12/30/16 13:59 12/23/16 20:35 Metoclopramide HCl (Reglan) 10 mg Q6H PRN IVP Nausea & Vomiting 12/23/16 19:30 01/22/17 19:29 12/24/16 10:16 Morphine Sulfate (Morphine Sulfate) 1 mg Q4H PRN IVP PAIN 4-10 12/23/16 14:00 12/30/16 13:59 Ondansetron HCl (Zofran) 4 mg Q6H PRN IVP Nausea & Vomiting 12/23/16 14:00 01/22/17 13:59 12/24/16 07:07 Pantoprazole (Protonix) 40 mg DAILY IVP 12/24/16 09:00 01/23/17 08:59 12/24/16 08:40 Polyethylene Glycol (Miralax) 17 gm HSPRN PRN ORAL Constipation 12/23/16 14:00 01/22/17 13:59 Promethazine HCl (Phenergan) 25 mg Q4HR PRN IV Nausea & Vomiting 12/23/16 19:30 01/22/17 19:29 Thiamine HCl/ Dextrose (Vitamin B1/D5W) 111 ml @ 222 mls/hr Q24H IV 12/23/16 16:00 01/22/17 15:59 12/23/16 16:47 Zolpidem Tartrate (Ambien) 5 mg HSPRN PRN ORAL Insomnia 12/23/16 14:00 01/22/17 13:59 12/24/16 00:37 AGUSTÍN EVANS Dec 24, 2016 12:24
--- NOTE | 2016-12-24 12:33 | Pre-Procedure Note/Attestation ---
Pre-Procedure Note/Attestation Complete Prior to Procedure Planned Procedure: not applicable Procedure Narrative: EGD Indications for Procedure Pre-Operative Diagnosis: gib Attestation I attest that I discussed the nature of the procedure; its benefits; risks and complications; and alternatives (and the risks and benefits of such alternatives ), prior to the procedure, with the patient (or the patient's legal telecommunications sales representative). I attest that, if there was a reasonable possibility of needing a blood transfusion, the patient (or the patient's legal telecommunications sales representative) was given the [facility] standardized written summary, pursuant to the Juan Valentine Blood Safety Act ([place] Health and Safety Code # 1645, as amended). I attest that I re-evaluated the patient just prior to the surgery and that there has been no change in the patient's H&P, except as documented below: REI DUBON Dec 24, 2016 12:33
[2016-12-24] MEDS ORDERED: Propofol 10mg/ml 20ml IV ONE (12:40)
[2016-12-24] MEDS ORDERED: Labetalol 5mg/ml 20ml vial IV ONE (12:40)
[2016-12-24] MEDS ORDERED: Tubing IV Cassette IV ONE (12:47)
[2016-12-24] MEDS ORDERED: NS 550ML IV ONE (12:47)
--- NOTE | 2016-12-24 12:56 | Endoscopy Procedure Note ---
Endoscopy Procedure Note Indication for Procedure: gib Procedures Performed: EGD Operative Findings/Diagnosis: esophagitis Specimen: yes Pt Tolerated Procedure Well: Yes Estimated Blood Loss: none Anesthesiologist: ana Anesthesia: MAC Implant(s) used?: No 50 yrs or older w/o bx or poly: Not Applicable 10yrs. F/U not recommended: Not Applicable REI DUBON Dec 24, 2016 12:56
[2016-12-24] MEDS ORDERED: LORazepam Inj 2mg/ml 1ml IV PRN (13:15)
--- NOTE | 2016-12-24 13:19 | Anethesia Preoperative Eval ---
Anesthesia Pre-op PMH/ROS General Date of Evaluation: Dec 24, 2016 Time of Evaluation: 12:41 Anesthesiologist: Christo ASA Score: ASA 3 Mallampati Score Class I : Soft palate, uvula, fauces, pillars visible Class II: Soft palate, uvula, fauces visible Class III: Soft palate, base of uvula visible Class IV: Only hard plate visible Mallampati Classification: Class II Surgeon: Charley Diagnosis: Alcohol withdrawal, Hematemesis Surgical Procedure: EGD Family History: no anesthesia problems Allergies: Coded Allergies: LISINOPRIL (Verified Allergy, Unknown, 12/13/16) Past Medical History Cardiovascular: Reports: HTN Pulmonary: Denies: COPD, NAREN, asthma, other Gastrointestinal/Genitourinary: Reports: GERD, Denies: CRI, ESRD, other Neurologic/Psychiatric: Reports: depression/anxiety, Denies: CVA, TIA, dementia, other Endocrine: Denies: DM, hypothyroidism, other, steroids HEENT: Denies: [place] (L), [place] (R), cataract (L), cataract (R), glaucoma, other Hematology/Immune: Denies: DVT, anemia, bleeding disorder, other Musculoskeletal/Integumentary: Denies: DDD, DJD, OA, RA, edema, other PMH Narrative: HTN, gout, GERD, alcohol withdrawal, hematemesis PSxH Narrative: Shoulder, EGD Anesthesia Pre-op Phys. Exam Physician Exam Last Vital Signs Date Time Temp Pulse Resp B/P Pulse Ox O2 Delivery O2 Flow Rate FiO2 12/24/16 13:12 86 15 143/101 100 Simple Mask 6.0 12/24/16 13:07 98.7 Constitutional: NAD Neurologic: CN 2-12 intact Cardiovascular: RRR, no M/R/G Respiratory: CTA Gastrointestinal: S/NT/ND Airway Exam Mallampati Score: Class II MO: full ROM: full Teeth: intact Anesthesia Pre-op A/P Labs Hematology Test 12/24/16 10:10 White Blood Count 7.2 K/UL (4.8-10.8) Red Blood Count 3.49 M/UL (4.70-6.10) L Hemoglobin 9.6 G/DL (14.2-18.0) L Hematocrit 31.2 % (42.0-52.0) L Mean Corpuscular Volume 89 FL (80-99) Mean Corpuscular Hemoglobin 27.4 PG (27.0-31.0) Mean Corpuscular Hemoglobin Concent 30.6 G/DL (32.0-36.0) L Red Cell Distribution Width 17.7 % (11.6-14.8) H Platelet Count 121 K/UL (150-450) #L Mean Platelet Volume 6.9 FL (6.5-10.1) Neutrophils (%) (Auto) 73.5 % (45.0-75.0) Lymphocytes (%) (Auto) 18.6 % (20.0-45.0) L Monocytes (%) (Auto) 7.4 % (1.0-10.0) Eosinophils (%) (Auto) 0.2 % (0.0-3.0) Basophils (%) (Auto) 0.4 % (0.0-2.0) Chemistry Test 12/24/16 07:15 Sodium Level 135 mEQ/L (135-145) Potassium Level 3.7 mEQ/L (3.4-4.9) Chloride Level 88 mEQ/L (98-107) L Carbon Dioxide Level 30 mEQ/L (20-30) Anion Gap 17 (5-15) H Blood Urea Nitrogen 11 mg/dL (7-23) Creatinine 0.8 mg/dL (0.7-1.2) Estimat Glomerular Filtration Rate > 60 mL/min (>60) Glucose Level 130 mg/dL (74-106) H Calcium Level 8.5 mg/dL (8.6-10.2) L Total Bilirubin 1.3 mg/dL (0.0-1.2) H Direct Bilirubin 0.3 mg/dL (0.1-0.3) Aspartate Amino Transf (AST/SGOT) 21 U/L (5-40) Alanine Aminotransferase (ALT/SGPT) 10 U/L (3-41) Alkaline Phosphatase 77 U/L (40-129) Total Protein 6.2 g/dL (6.6-8.7) L Albumin 3.8 g/dL (3.5-5.2) Globulin 2.4 g/dL Albumin/Globulin Ratio 1.5 (1.0-2.7) Risk Assessment & Plan Assessment: Hematemesis Plan: GA, TIVA Status Change Before Surgery: No Pre-Antibiotics Drug: None REENA LOCK M.D. Dec 24, 2016 13:19
--- NOTE | 2016-12-24 13:21 | Immediate Post-Op Evaluation ---
Immediate Post-Op Evalulation Immediate Post-Op Evalulation Procedure: EGD Date of Evaluation: Dec 24, 2016 Time of Evaluation: 13:16 IV Fluids: 250 Blood Pressure Systolic: 156 Blood Pressure Diastolic: 107 Pulse Rate: 82 Respiratory Rate: 15 O2 Sat by Pulse Oximetry: 100 Temperature (Fahrenheit): 98.2 Pain Score (1-10): 0 Nausea: No Vomiting: No Complications No complication Patient Status: awake, patent, none Hydration Status: adequate Drug: None REENA LOCK M.D. Dec 24, 2016 13:21
[2016-12-24] MEDS ORDERED: Labetalol 5mg/ml 20ml vial IV PRN (13:30)
[2016-12-24] MEDS: Sucralfate 1gm tab ORAL SCH ×3 (14:04→21:00)
[2016-12-24] MEDS: Folic Acid 1 MG, Magnesium Sulfate 2,000 MG, Multivitamin - 12 Injection 10 ML in NS w/... IV SCH (17:15)
[2016-12-24] MEDS: Thiamine HCl 100 MG in D5W 110 ML IV SCH (18:32)
--- NOTE | 2016-12-24 22:08 | Procedure Note ---
DATE OF PROCEDURE: 12/24/2016 SURGEON: Mitch Whitehead M.D. PROCEDURE: Upper endoscopy with biopsy. ANESTHESIA: Per . INSTRUMENT: Olympus adult flexible upper endoscope. INDICATION: Gastrointestinal bleeding. REASON FOR PROCEDURE: The procedure, risks, benefits, and possible consequences, including hemorrhage, aspiration, perforation and infection, and alternative treatments, were explained to the patient/legal guardian by Dr. Mitch Whitehead and the patient/legal guardian understood and accepted these risks. DESCRIPTION OF PROCEDURE: After informed consent was obtained and the patient was adequately sedated, Olympus upper endoscope was advanced from mouth into the second portion of duodenum and retroflexion was performed in the stomach. The patient had evidence of distal esophagitis, hiatal hernia, and gastritis. Biopsy from antrum was obtained to rule out H. pylori infection. At this time, the upper endoscope was retrieved and the procedure was terminated. SUMMARY OF FINDINGS: 1. Distal esophagitis. 2. Hiatal hernia. 3. Gastritis with biopsy. RECOMMENDATIONS: 1. Elevate the head of the bed at all times. 2. Reflux measures. 3. PPI. 4. Carafate. 5. Avoid alcohol. 6. Resume diet. Mitch Whitehead M.D. DR: ZULLY JOB#: [id number] CC:
[2016-12-25] VITALS: BP 140/93
--- NOTE | 2016-12-25 00:01 | Cardiology Report ---
APPROVED REPORT EKG Measurement Heart [id number] Sinus tachycardia Left axis deviation Pulmonary disease pattern Abnormal ECG
[2016-12-25 04:00] VITALS: BP 138/103
[2016-12-25 04:30] VITALS: BP 136/92
[2016-12-25] MEDS: chlordiazePOXIDE 25mg Cap ORAL PRN (05:23)
[2016-12-25 07:18] LABS: MEAN CORPUSCULAR HEMOGLOBIN 27.5 PG (27.0-31.0); MEAN CORPUSCULAR HGB CONC 30.4 G/DL (32.0-36.0); MEAN CORPUSCULAR VOLUME 90 FL (80-99); MEAN PLATELET VOLUME 6.8 FL (6.5-10.1); PLATELET COUNT 95 K/UL (150-450); RED BLOOD COUNT 3.36 M/UL (4.70-6.10); RED CELL DISTRIBUTION WIDTH 16.9 % (11.6-14.8); WHITE BLOOD COUNT 5.2 K/UL (4.8-10.8)
[2016-12-25 07:25] LABS: PROTHROMBIN TIME 10.3 SEC (9.30-11.50)
[2016-12-25 07:31] LABS: MAGNESIUM 1.8 mg/dL (1.7-2.5)
[2016-12-25 07:33] LABS: ALANINE AMINOTRANSFERASE 11 U/L (3-41); ALBUMIN/GLOBULIN RATIO 1.2 (1.0-2.7); ANION GAP 14 (5-15); ASPARTATE AMINO TRANSFERASE 25 U/L (5-40); CALCIUM 8.7 mg/dL (8.6-10.2); CARBON DIOXIDE 31 mEQ/L (20-30); CHLORIDE 91 mEQ/L (98-107); CREATININE 0.7 mg/dL (0.7-1.2); GLOMERULAR FILTRATION RATE > 60 mL/min (>60); HEMOLYSIS 0; POTASSIUM 3.3 mEQ/L (3.4-4.9); SODIUM 136 mEQ/L (135-145); TOTAL PROTEIN 6.4 g/dL (6.6-8.7)
[2016-12-25 08:19] VITALS: BP 138/104
[2016-12-25] MEDS ORDERED: LORazepam Inj 2mg/ml 1ml IV PRN (08:45)
--- NOTE | 2016-12-25 09:37 | GI Progress Note ---
Assessment/Plan Problems: (1) Alcohol withdrawal ICD Codes: F10.239 - Alcohol dependence with withdrawal, unspecified SNOMED: 294681282 (2) Alcohol abuse ICD Codes: F10.10 - Alcohol abuse, uncomplicated SNOMED: 15230763, 13734817 (3) Hematemesis ICD Codes: K92.0 - Hematemesis SNOMED: 4542038, 06926424 Qualifiers: Qualified Codes: K92.0 - Hematemesis; R11.0 - Nausea (4) ETOH abuse ICD Codes: F10.10 - Alcohol abuse, uncomplicated SNOMED: 65853515, 02098725 (5) Gastritis due to alcohol without hemorrhage ICD Codes: K29.20 - Alcoholic gastritis without bleeding SNOMED: 2878768 Status: stable Status Narrative Discussed with Dr. Whitehead. Assessment/Plan S/P EGD - SUMMARY OF FINDINGS: 1. Distal esophagitis. 2. Hiatal hernia. 3. Gastritis with biopsy. RECOMMENDATIONS: 1. Elevate the head of the bed at all times. 2. Reflux measures. 3. PPI. 4. Carafate. 5. Avoid alcohol. 6. Resume diet. Subjective Subjective abdominal pain, improving tolerating diet Objective Last 24 Hour Vital Signs Date Time Temp Pulse Resp B/P Pulse Ox O2 Delivery O2 Flow Rate FiO2 12/25/16 08:19 97.9 107 20 138/104 99 Nasal Cannula 2.0 12/25/16 04:30 100 136/92 12/25/16 04:00 98.6 110 19 138/103 100 Room Air 12/25/16 04:00 93 12/25/16 00:00 99 12/25/16 00:00 99.9 115 18 140/93 100 Room Air 12/24/16 20:00 90 12/24/16 20:00 97.4 99 19 150/105 98 12/24/16 16:00 99 12/24/16 16:00 98.2 96 21 141/89 100 12/24/16 13:50 98.8 81 18 145/93 100 Nasal Cannula 3.0 12/24/16 13:40 83 16 144/98 100 Nasal Cannula 3.0 12/24/16 13:25 84 17 146/100 100 Nasal Cannula 3.0 12/24/16 13:21 82 15 100 12/24/16 13:17 83 16 156/107 100 Nasal Cannula 3.0 12/24/16 13:12 86 15 143/101 100 Simple Mask 6.0 12/24/16 13:07 98.7 88 14 146/105 100 Simple Mask 6.0 12/24/16 12:00 116 12/24/16 11:34 98.1 101 20 157/98 94 Nasal Cannula 2.0 Intake and Output 12/24/16 12/25/16 19:00 07:00 Intake Total 300 ml 760 ml Output Total 1400 ml Balance 300 ml -640 ml Intake Oral 260 ml IV Total 300 ml 500 ml Output Urine Total 1400 ml Laboratory Tests Test 12/24/16 10:10 12/25/16 06:20 White Blood Count 7.2 K/UL (4.8-10.8) 5.2 K/UL (4.8-10.8) Red Blood Count 3.49 M/UL (4.70-6.10) L 3.36 M/UL (4.70-6.10) L Hemoglobin 9.6 G/DL (14.2-18.0) L 9.3 G/DL (14.2-18.0) L Hematocrit 31.2 % (42.0-52.0) L 30.4 % (42.0-52.0) L Mean Corpuscular Volume 89 FL (80-99) 90 FL (80-99) Mean Corpuscular Hemoglobin 27.4 PG (27.0-31.0) 27.5 PG (27.0-31.0) Mean Corpuscular Hemoglobin Concent 30.6 G/DL (32.0-36.0) L 30.4 G/DL (32.0-36.0) L Red Cell Distribution Width 17.7 % (11.6-14.8) H 16.9 % (11.6-14.8) H Platelet Count 121 K/UL (150-450) #L 95 K/UL (150-450) L Mean Platelet Volume 6.9 FL (6.5-10.1) 6.8 FL (6.5-10.1) Neutrophils (%) (Auto) 73.5 % (45.0-75.0) % (45.0-75.0) Lymphocytes (%) (Auto) 18.6 % (20.0-45.0) L % (20.0-45.0) Monocytes (%) (Auto) 7.4 % (1.0-10.0) % (1.0-10.0) Eosinophils (%) (Auto) 0.2 % (0.0-3.0) % (0.0-3.0) Basophils (%) (Auto) 0.4 % (0.0-2.0) % (0.0-2.0) Neutrophils % (Manual) Pending Lymphocytes % (Manual) Pending Platelet Estimate Pending Platelet Morphology Pending Prothrombin Time 10.3 SEC (9.30-11.50) Prothromb Time International Ratio 1.0 (0.9-1.1) Activated Partial Thromboplast Time 25 SEC (23-33) Sodium Level 136 mEQ/L (135-145) Potassium Level 3.3 mEQ/L (3.4-4.9) L Chloride Level 91 mEQ/L (98-107) L Carbon Dioxide Level 31 mEQ/L (20-30) H Anion Gap 14 (5-15) Blood Urea Nitrogen 5 mg/dL (7-23) L Creatinine 0.7 mg/dL (0.7-1.2) Estimat Glomerular Filtration Rate > 60 mL/min (>60) Glucose Level 114 mg/dL (74-106) H Calcium Level 8.7 mg/dL (8.6-10.2) Phosphorus Level 2.0 mg/dL (2.5-4.8) L Magnesium Level 1.8 mg/dL (1.7-2.5) Total Bilirubin 0.8 mg/dL (0.0-1.2) Aspartate Amino Transf (AST/SGOT) 25 U/L (5-40) Alanine Aminotransferase (ALT/SGPT) 11 U/L (3-41) Alkaline Phosphatase 71 U/L (40-129) Total Protein 6.4 g/dL (6.6-8.7) L Albumin 3.5 g/dL (3.5-5.2) Globulin 2.9 g/dL Albumin/Globulin Ratio 1.2 (1.0-2.7) Height (Feet): 6 Height (Inches): 3.00 Weight (Pounds): 190 General Appearance: no apparent distress, alert Cardiovascular: normal rate Respiratory/Chest: normal breath sounds, no respiratory distress Abdominal Exam: normal bowel sounds, non tender, soft Extremities: normal range of motion, non-tender Huong Keys N.P. Dec 25, 2016 09:37
[2016-12-25 10:20] LABS: BAND NEUTROPHILS % (MANUAL) 0 % (0-8); BASOPHILS % (MANUAL) 0 % (0-2); EOSINOPHILS % (MANUAL) 0 % (0-3); LYMPHOCYTES % (MANUAL) 22 % (20-45); NEUTROPHILS % (MANUAL) 75 % (45-75); NUCLEATED RED BLOOD CELLS 1 /100 WBC; PLATELET ESTIMATE DECREASED; PLATELET MORPHOLOGY NORMAL; TOTAL CELLS COUNTED 100
[2016-12-25 10:21] LABS: ANISOCYTOSIS 1+; HYPOCHROMASIA 1+
--- NOTE | 2016-12-25 10:48 | Diagnostic Imaging Report ---
Indication: Edematous cysts, abnormal liver function tests Technique: Galvez-scale and duplex images of the upper abdomen were obtained Comparison: None Findings: . Gallbladder is unremarkable, without stones, wall thickening, nor pericholecystic fluid. Common bile duct measures 5 mm in diameter. No intrahepatic biliary ductal dilatation. Liver demonstrates diffusely increased echogenicity, consistent with diffuse hepatocellular disease, most likely fatty change.. Portal vein and hepatic veins are patent.. Pancreas is unremarkable. Spleen is lobulated versus having a juxta splenic accessory splenule, otherwise unremarkable. Left kidney measures 12 cm in length. Right kidney measures 11.5 cm length. Both kidneys demonstrate normal echogenicity. There is no hydronephrosis. No focal abnormality. . Non-aneurysmal abdominal aorta. Impression: Liver demonstrates diffusely increased echogenicity, consistent with diffuse hepatocellular disease, most likely fatty change. Negative for gallstones or dilated ducts
[2016-12-25] MEDS: Pantoprazole Inj IVP SCH (10:49)
[2016-12-25] MEDS: Sucralfate 1gm tab ORAL SCH ×2 (10:49→13:22)
[2016-12-25 12:45] VITALS: BP 132/91
--- NOTE | 2016-12-25 13:14 | Pulmonology Progress Note ---
Assessment/Plan Problems: (1) ETOH abuse (2) Hematemesis (3) Alcohol abuse (4) Alcohol withdrawal Assessment/Plan Heart rate better f/u EGD results chech H/H, pt/ptt banana bag finished Librium prn dc home with f/u with primiary Subjective ROS Limited/Unobtainable: No Interval Events: doing much better Allergies: Coded Allergies: LISINOPRIL (Verified Allergy, Unknown, 12/13/16) Objective Last 24 Hour Vital Signs Date Time Temp Pulse Resp B/P Pulse Ox O2 Delivery O2 Flow Rate FiO2 12/25/16 12:45 97.7 97 18 132/91 98 Nasal Cannula 3.0 12/25/16 08:19 97.9 107 20 138/104 99 Nasal Cannula 2.0 12/25/16 04:30 100 136/92 12/25/16 04:00 98.6 110 19 138/103 100 Room Air 12/25/16 04:00 93 12/25/16 00:00 99 12/25/16 00:00 99.9 115 18 140/93 100 Room Air 12/24/16 20:00 90 12/24/16 20:00 97.4 99 19 150/105 98 12/24/16 16:00 99 12/24/16 16:00 98.2 96 21 141/89 100 12/24/16 13:50 98.8 81 18 145/93 100 Nasal Cannula 3.0 12/24/16 13:40 83 16 144/98 100 Nasal Cannula 3.0 12/24/16 13:25 84 17 146/100 100 Nasal Cannula 3.0 12/24/16 13:21 82 15 100 12/24/16 13:17 83 16 156/107 100 Nasal Cannula 3.0 Intake and Output 12/24/16 12/25/16 19:00 07:00 Intake Total 300 ml 760 ml Output Total 1400 ml Balance 300 ml -640 ml Intake Oral 260 ml IV Total 300 ml 500 ml Output Urine Total 1400 ml General Appearance: WD/WN, no acute distress Respiratory/Chest: chest wall non-tender, lungs clear Cardiovascular: normal peripheral pulses, normal rate Abdomen: normal bowel sounds, soft, non tender Extremities: no clubbing Skin: no rash Laboratory Tests 12/25/16 06:20: White Blood Count 5.2, Red Blood Count 3.36L, Hemoglobin 9.3L, Hematocrit 30.4L , Mean Corpuscular Volume 90, Mean Corpuscular Hemoglobin 27.5, Mean Corpuscular Hemoglobin Concent 30.4L, Red Cell Distribution Width 16.9H, Platelet Count 95L, Mean Platelet Volume 6.8, Neutrophils (%) (Auto) , Lymphocytes (%) (Auto) , Monocytes (%) (Auto) , Eosinophils (%) (Auto) , Basophils (%) (Auto) , Differential Total Cells Counted 100, Neutrophils % ( Manual) 75, Lymphocytes % (Manual) 22, Monocytes % (Manual) 3, Eosinophils % ( Manual) 0, Basophils % (Manual) 0, Band Neutrophils 0, Nucleated Red Blood Cells 1, Platelet Estimate DecreasedL, Platelet Morphology Normal, Hypochromasia 1+, Anisocytosis 1+, Prothrombin Time 10.3, Prothromb Time International Ratio 1.0, Activated Partial Thromboplast Time 25, Sodium Level 136, Potassium Level 3.3L, Chloride Level 91L, Carbon Dioxide Level 31H, Anion Gap 14, Blood Urea Nitrogen 5L, Creatinine 0.7, Estimat Glomerular Filtration Rate > 60, Glucose Level 114H, Calcium Level 8.7, Phosphorus Level 2.0L, Magnesium Level 1.8, Total Bilirubin 0.8, Aspartate Amino Transf (AST/SGOT) 25, Alanine Aminotransferase (ALT/SGPT) 11, Alkaline Phosphatase 71, Total Protein 6.4L, Albumin 3.5, Globulin 2.9, Albumin/Globulin Ratio 1.2 Current Medications Medications (Trade) Dose Ordered Sig/Kulwant Route PRN Reason Start Time Stop Time Status Last Admin Dose Admin Acetaminophen (Tylenol) 650 mg Q4H PRN ORAL fever 12/23/16 14:00 01/22/17 13:59 Al Hydroxide/Mg Hydroxide (Mylanta II) 30 ml Q6H PRN ORAL dyspepsia 12/23/16 14:00 01/22/17 13:59 Chlordiazepoxide 25 mg 25 mg Q6H PRN ORAL Agitation 12/23/16 14:00 12/30/16 13:59 12/25/16 05:23 Dextrose STAT PRN IV Hypoglycemia 12/23/16 14:00 01/22/17 13:59 Folic Acid/ Magnesium Sulfate/ Multivitamins/ Sodium Chloride (Folvite/ Magnesium Sulfate/ M.v.i.-12/NS w/ KCl 20mEq) 1,014.2 ml @ 125 mls/ hr Q24H IV 12/23/16 16:00 01/22/17 15:59 12/24/16 17:15 Lorazepam (Ativan 2mg/ml 1ml) 1 mg Q4H PRN IV For Anxiety 12/25/16 08:45 01/01/17 08:44 Lorazepam (Ativan 2mg/ml 1ml) 2 mg Q1H PRN IV seizures 12/23/16 14:00 12/30/16 13:59 12/23/16 20:35 Metoclopramide HCl (Reglan) 10 mg Q6H PRN IVP Nausea & Vomiting 12/23/16 19:30 01/22/17 19:29 12/24/16 17:15 Morphine Sulfate (Morphine Sulfate) 1 mg Q4H PRN IVP PAIN 4-10 12/23/16 14:00 12/30/16 13:59 Ondansetron HCl (Zofran) 4 mg Q6H PRN IVP Nausea & Vomiting 12/23/16 14:00 01/22/17 13:59 12/24/16 07:07 Pantoprazole (Protonix) 40 mg DAILY IVP 12/24/16 09:00 01/23/17 08:59 12/25/16 10:49 Polyethylene Glycol (Miralax) 17 gm HSPRN PRN ORAL Constipation 12/23/16 14:00 01/22/17 13:59 Promethazine HCl (Phenergan) 25 mg Q4HR PRN IV Nausea & Vomiting 12/23/16 19:30 01/22/17 19:29 12/24/16 20:10 Sucralfate (Carafate) 1 gm FOUR TIMES A DAY ORAL 12/24/16 14:00 01/23/17 13:59 12/25/16 10:49 Thiamine HCl/ Dextrose (Vitamin B1/D5W) 111 ml @ 222 mls/hr Q24H IV 12/23/16 16:00 01/22/17 15:59 12/24/16 18:32 Zolpidem Tartrate (Ambien) 5 mg HSPRN PRN ORAL Insomnia 12/23/16 14:00 01/22/17 13:59 12/24/16 23:54 AGUSTÍN EVANS Dec 25, 2016 13:14
[2016-12-25] MEDS ORDERED: CARAFATE1 G1 ORAL (14:32)
--- NOTE | 2016-12-26 19:10 | Discharge Summary ---
Discharge Summary Hospital Course Date of Admission Dec 23, 2016 at 10:47 Date of Discharge Dec 25, 2016 at 15:20 Admitting Diagnosis ETOH WITHDRAWL/ HEMATEMESIS GRISEL [place] is a 46 year old male who was admitted on Dec 23, 2016 at 10:47 for Etoh Withdrawl, Hematemesis Hospital Course [id number] Discharge Discharge Disposition Patient was discharged to Home (01) Discharge Diagnoses: Octavia Fraga NP Dec 26, 2016 19:10
--- NOTE | 2016-12-27 01:38 | Discharge Summary 2 SIG ---
DATE OF ADMISSION: 12/23/2016 DATE OF DISCHARGE: 12/25/2016 ELECTRICAL MACHINE BUILDER: Mitch Whitehead M.D. BRIEF HOSPITAL COURSE: The patient is a 46-year-old male, who presented for hematemesis and alcohol withdrawal. The patient stated that he has been trying to quit drinking for hours, but, however drank vodka in the morning. He had coffee-grounds emesis in ED, but denied any bloody stools or any urinary complaints. No chest pain. No shortness of breath. On evaluation at ED, EKG showed no ischemic changes. Due to hematemesis the patient was admitted for further workup, and was admitted to telemetry, placed on NPO with IV hydration and banana bag. Librium was given for withdrawal with p.r.n. Ativan. He was given octreotide drip and Protonix drip. Dr. Whitehead was consulted. The patient underwent EGD on 12/24/2016 with findings of esophagitis, hiatal hernia, and gastritis. He was advised to elevate head of the bed at all times, avoid alcohol. He was given proton pump inhibitors and Carafate. Diet was resumed. He was tolerating diet. Laboratories had been stable. The patient was eventually discharged home, advised to follow up with primary physician. FINAL DIAGNOSES: 1. Gastrointestinal bleed with hematemesis. 2. ETOH abuse. 3. Alcohol withdrawal. 4. Esophagitis. 5. Hiatal hernia. 6. Gastritis. Yury Matos M.D. I have been assigned to dictate discharge summary on this account and I was not involved in the patient's management. Octavia Fraga N.P. DR: FELIPE JOB#: [id number] CC: LILY
== END 2016-12-25 15:20 | disposition home or self-care (01) | DRG 253 ==
LOC: EDBD 09:05 → EMR 09:34 → EDBEDREQ 10:44 → 2E 10:47 → EDBEDREQ 15:12
PROC: 0DB68ZX Excision of Stomach, Via Natural or Artificial Opening Endoscopic, Diagnostic (ICD-10-PCS; principal; 2016-12-24 12:52)
DX: K92.2 Gastrointestinal hemorrhage, unspecified (principal); F10.239 Alcohol dependence with withdrawal, unspecified; K20.9 Esophagitis, unspecified; K44.9 Diaphragmatic hernia without obstruction or gangrene; K29.20 Alcoholic gastritis without bleeding
CPT/HCPCS: 36415; 71010; 76700; 80053; 81003; 82248; 83690; 83735; 84100; 84484; 85007; 85025; 85610; 85730; 93005; 94003; 94150; J2405; J2765